=== PATIENT | female | born 1960 | race Caucasian/White ===

== ENCOUNTER 2024-01-25 10:19 | Emergency (ER) | payer BC, SELFPAY ==
[2024-01-25 10:33] VITALS: BP 166/104
--- NOTE | 2024-01-25 11:11 | ED.GENMED ---
History of Present Illness
General
Chief Complaint: Abdominal Pain
Source: patient
Exam Limitations: none
Time Seen by Provider: 01/25/24 10:50
Nursing documentation reviewed up to this point in time: agreed with
Travel History
Have you had any contact with someone who has COVID-19?: No
Do you have any symptoms of coronavirus? Fever > 100 degrees, chills, cough, shortness of breath, sore throat, loss of taste or smell, muscle aches, or headache?: No
History of Present Illness
History of Present Illness:
63-year-old female with past medical history of high blood pressure presenting to the emergency department today with concerns of lower abdominal pain worsening over the past 5 days with abdominal pressure she has been passing gas but having
difficulty with significant bowel movements has been having a small amount of loose stool. Denies vomiting has had some nausea. Has been taking Imodium with slight improvement. Denies history abdominal surgeries, she did have 1 .
Review of Systems
Review of Systems
Allergies reviewed?: Yes
All Other Systems: ROS reviewed and negative except as documented in HPI and ROS
Phy Exam
Physical Exam
Physical Exam:
GENERAL: Alert , in no apparent distress
EYE: pupils equal and reactive
NECK: Supple, no significant adenopathy.
ENT: o/p clr, mmm.
CARDIAC: Regular rate and rhythm .
LUNGS: Clear breath sounds bilaterally, no acute respiratory distress, no wheezes/rales/rhonchi
ABDOMEN: Significant tender to palpation to the lower abdomen maximal to the left lower quadrant no upper abdominal pain
NEUROLOGICAL: Alert and oriented, no focal neuro deficits
SKIN: Warm and dry, skin intact.
MUSCULOSKELETAL: No edema, well perfused.
PSYCH: Normal and appropriate interaction.
Course
Orders/Labs/Results
Orders:
Orders
01/25/24 10:58
CT Abd/pel (oral only)-[facility] Only Urgent
Comment:
Reason For Exam: iv contrast allergy abd pain llq
0.9% Sodium Chloride 1000 ml [Nss] 1,000 ml IV BOLUS
Iohexol [Omnipaque] See Protocol PO NOW STA
Ondansetron Injectable [Zofran] 4 mg IV NOW STA
01/25/24 11:59
Complete Blood Count/With Diff Urgent
Comprehensive Metabolic Panel Urgent
Lipase Urgent
Urinalysis Reflex To Culture Urgent
Date Specimen was Collected: 01/25/24
Time Specimen was Collected: 11:00
Urine Microscopic Reflex Cult Urgent
Urine Culture Urgent
CYNDY Source: U
Specimen Description:
Date Specimen was Collected: 01/25/24
Time Specimen was Collected: 11:00
Abnormal Lab Results
01/25/24
11:59
RBC 4.17 L 10^6/uL
(4.20-5.40)
MCH 32.6 H pg
(27.0-31.0)
Sodium 133 L mmol/L
(135-145)
AST 49 H U/L
(14-36)
ALT 40 H U/L
(0-35)
Urine Ketones Trace A
(Negative)
Leukocyte Esterase Rfl Trace A
(Negative)
Urine Bacteria (Reflex) Moderate A
(Negative)
01/25/24 11:59
01/25/24 11:59
Vital Signs
Initial and Last Documented VS:
Initial Vital Signs
Temp Pulse Resp BP Pulse Ox
98.2 F 103 16 166/104 98
01/25/24 10:33 01/25/24 10:33 01/25/24 10:33 01/25/24 10:33 01/25/24 10:33
Last Documented Vital Signs
Temp Pulse Resp BP Pulse Ox
98.2 F 82 16 144/99 98
01/25/24 10:33 01/25/24 13:28 01/25/24 10:33 01/25/24 13:28 01/25/24 11:16
MDM/Problems Addressed
MDM/Problems Addressed:
63-year-old female presenting to the emergency department today with concerns of lower abdominal discomfort over the past 5 days or so. They will be tolerating anything by mouth over the past few days. Has had some loose small bowel movements.
Denies specific fevers on arrival here pulse rate slightly elevated does have reproducible tenderness to the lower abdomen maximal to the left lower quadrant. Plan for CT scan for further assessment. CT scan showing incidental findings of enlarged
liver and ascites. Plan to follow-up with outpatient MRI for further assessment of this. Patient is aware. Otherwise no emergent findings stable for discharge return precautions given. Written for Jacy for symptoms she does have a remote
history of IBS
*Critical Care Note
Total Time (30-74mins, 75-104mins- exclusive of procedures): Not Applicable
ED Attending Note
-
Portions of this chart may have been created with voice recognition software.� Occasional wrong word or��sound alike� substitutions may have occurred due to the inherent limitations of voice recognition software.
Discharge Plan
Departure
Patient Disposition: Home (Routine Discharge)
Date of Disposition: 01/25/24
Time of Disposition: 15:14
Patient with high blood pressure during this ER visit?: No
Condition: Good
Covid-19: Not Applicable
Discharge Problem:
Abdominal pain, Hepatomegaly
Instructions: Abdominal Pain
Prescriptions:
New
dicyclomine 10 mg capsule
10 mg PO QID PRN (Reason: abdominal pain) Qty: 10 0RF
No Action
lisinopril-hydrochlorothiazide 20-25 mg Tablet
1 tab PO DAILY
Referrals:
Thomas Shafer MD [Family Provider] -
Activity Restrictions/Additional Instructions:
You came to the emergency department today with concerns of abdominal discomfort. You are found to have an enlarged liver and it is recommended to get an outpatient MRI. Please follow with your primary care doctor to have this ordered.
Additionally take Bentyl to help with symptoms and return to the emergency department for any worsening, new or concerning symptoms.
Interventions
Interventions:
*Risk Screen - Suicide Last Done: 01/25/24 11:16
*General Assessment Last Done: 01/25/24 11:16
*Neglect/Abuse Screening Last Done: 01/25/24 11:16
ED- Fall Risk Assessment Last Done: 01/25/24 11:16
*ED COVID-19 Vaccine History Last Done: 01/25/24 10:33
KT-Xcgrha-Znbqcaacdn Assessment Last Done: 01/25/24 11:16
[2024-01-25 11:16] VITALS: BMI 25.5
[2024-01-25] MEDS: NSS 1000 IV (11:19)
[2024-01-25] MEDS: ZOFRAN 4 MG IV (11:22)
[2024-01-25] MEDS: OMNIPAQUE 50 ML PO (11:22)
--- NOTE | 2024-01-25 11:31 | EDRN ---
the pt rang her phan that's at the bedside and this RN entered the pts room, the pt stated, 'I am uncomfortable with drinking this without speaking to the provider, i had an allergic reaction to IV contrast and i am scared to drink this', this RN
assured the pt that iodine was on the pts allergies and this RN notified Ed Wilian ROMERO and Cisco ROMERO came to the pts bedside and spoke to the pt, the pt is now drinking PO contrast, no s/s of reaction, will continue to monitor the pt closely
--- NOTE | 2024-01-25 11:54 | EDRN ---
the pt is currently still drinking PO contrast, no s/s of allergic reaction, no rash, no c/o SOB, no swelling present, will continue to monitor the pt closely
--- NOTE | 2024-01-25 12:04 | EDRN ---
this RN entered the pts room and the pt stated that she needed to use the bathroom, the pt was able to ambulate to the back to the stretcher with no issues, the pt was able to provide a urine sample, the pt is resting in stretcher in the lowest
position, side rails up x1, HOB elevated, call phan within reach, the pt is still currently drinking PO contrast with no s/s of allergic reaction, will continue to monitor the pt closely
[2024-01-25 12:13] LABS: % Basophils 0.5 % (0-2); % Eosinophils 1.1 % (0-6); % Immature Granulocytes 0.2 % (0-0.5); % Lymphocytes 25.5 % (20.5-51.1); % Monocytes 7.2 % (1.7-9.3); % Neutrophils 65.5 % (42.2-75.2); Absolute Eosinophils 0.1 10^3/uL (0-0.7); Absolute Lymphocytes 2.2 10^3/uL (1.2-3.4); Absolute Monocytes 0.6 10^3/uL (0.1-0.6); Absolute Neutrophils 5.6 10^3/uL (1.4-6.5); Hematocrit 39.2 % (37.0-47.0); Hemoglobin 13.6 g/dL (12.0-16.0); Mean Corp Hgb Conc. 34.7 g/dL (33.0-37.0); Mean Corpuscular Hgb 32.6 pg (27.0-31.0); Mean Platelet Volume 9.7 fL (7.4-10.4); Nucleated Red Blood Cells % 0 %; Platelet Count 185 10^3/uL (130-400); Red Blood Cell Count 4.17 10^6/uL (4.20-5.40); Red Cell Dist. Width 12.9 % (11.5-14.5); White Blood Cell Count 8.5 10^3/uL (4.8-10.8)
[2024-01-25 12:16] LABS: Urine Albumin Negative (Neg - Trace); Urine Bilirubin Negative (Negative); Urine Character Clear (Clear); Urine Color Yellow; Urine Glucose Negative (Negative); Urine Ketone Trace (Negative); Urine Leukocyte Trace (Negative); Urine Nitrite Negative (Negative); Urine Occult Blood Negative (Negative); Urine Specific Gravity 1.015 (<1.030); Urine Urobilinogen Negative (Neg - 1+)
[2024-01-25 12:26] LABS: Urine Mucus Moderate
[2024-01-25 12:28] LABS: Urine Bacteria Moderate (Negative); Urine Red Blood Cell 0-2 /HPF (0-2)
[2024-01-25 12:44] LABS: ALT (SGPT) 40 U/L (0-35); AST (SGOT) 49 U/L (14-36); Albumin 4.4 g/dl (3.5-5.0); Alkaline Phosphatase 63 U/L (38-126); Blood Urea Nitrogen 8 mg/dl (7-17); Calcium 9.2 mg/dl (8.4-10.2); Carbon Dioxide 25 mmol/L (22-30); Chloride 101 mmol/L (98-107); Estimated Creatinine Clearance 65 ml/min; Glucose 97 mg/dl (70-99); Lipase 240 U/L (23-300); Potassium 3.7 mmol/L (3.5-5.1); Sodium 133 mmol/L (135-145); Total Bilirubin 1.2 mg/dl (0.2-1.3); Total Protein 7.2 g/dl (6.3-8.2); eGFR > 60.00
--- NOTE | 2024-01-25 13:03 | EDRN ---
verbal report given to Tali SIMEON, the pt will be taken to results pending
[2024-01-25 13:28] VITALS: BP 144/99
[2024-01-25 15:26] VITALS: BP 143/83
[2024-01-25 15:29] VITALS: BP 143/83
== END 2024-01-25 15:30 | disposition home or self-care (01) ==
LOC: EMR 10:19
PROVIDERS: Physician Assistant; EMERGENCY PHYSICIAN Emergency Medicine; FAMILY PHYSICIAN Family Medicine
DX: R16.0 Hepatomegaly, not elsewhere classified (principal); R10.32 Left lower quadrant pain; R11.0 Nausea; I10 Essential (primary) hypertension; Z88.8 Allergy status to other drugs, medicaments and biological substances; Z88.6 Allergy status to analgesic agent; Z91.040 Latex allergy status
CPT/HCPCS: 99284; 96374; 96361; 74176; 80053; 81003; 81015; 83690; 85025; 87086

== ENCOUNTER 2025-10-01 21:18 | Inpatient (IN) | payer BC, SELFPAY ==
[2025-10-01 13:07] VITALS: BP 176/100
[2025-10-01 13:32] LABS: Hematocrit 45.6 % (37.0-47.0); Hemoglobin 15.2 g/dL (12.0-16.0); Mean Corp Hgb Conc. 33.3 g/dL (33.0-37.0); Mean Corpuscular Volume 96.6 fL (81.0-99.0); Nucleated Red Blood Cells % 0 %; Platelet Count 158 10^3/uL (130-400); Red Cell Dist. Width 12.2 % (11.5-14.5)
[2025-10-01 13:56] LABS: ALT (SGPT) 68 U/L (0-35); AST (SGOT) 146 U/L (14-36); Albumin 4.7 g/dl (3.5-5.0); Alkaline Phosphatase 167 U/L (38-126); Blood Urea Nitrogen 8 mg/dl (7-17); Calcium 9.4 mg/dl (8.4-10.2); Carbon Dioxide 21 mmol/L (22-30); Chloride 90 mmol/L (98-107); Glucose 68 mg/dl (70-99); Lipase 185 U/L (23-300); Potassium 4.3 mmol/L (3.5-5.1); Sodium 127 mmol/L (135-145); Total Protein 8.5 g/dl (6.3-8.2); eGFR > 60.00
--- NOTE | 2025-10-01 15:51 | ED.GENMED ---
History of Present Illness
<Donna Jones NP - Last Filed: 10/01/25 20:18>
General
Chief Complaint: Abdominal Symptoms
Source: patient
Exam Limitations: none
Time Seen by Provider: 10/01/25 15:11
Nursing documentation reviewed up to this point in time: agreed with
History of Present Illness
History of Present Illness:
Patient to emergency department with complaint of nausea vomiting diarrhea abdominal pain. States she developed URI -sore throat, nasal congestion, green nasal discharge - Symptoms last weekend. She was seen at urgent care on Thursday and placed
on Augmentin 875 mg twice daily. She said after the first dose she developed severe nausea. By Thursday she noted nausea vomiting and diarrhea. She has taken a total of 5 Augmentin tablets out of 14. States each time she takes a dose her
symptoms worsen. States she is still not feeling like herself. Brought self to the emergency department for evaluation. She denies fever/chills, skin rash.
Past History
<Donna Jones NP - Last Filed: 10/01/25 20:18>
Past History
ED Past Medical History: HTN and Other (Fatty liver)
Social History
Alcohol: Occasional (She reports drinking wine 'a few times during the week ')
Review of Systems
<Donna Jones NP - Last Filed: 10/01/25 20:18>
Review of Systems
Constitutional: Reports fatigue
EENT: Reports runny nose (Green nasal discharge)
Respiratory: Reports no symptoms
Cardiac: Reports no symptoms
ABD/GI: Reports abdominal pain (Upper abdominal pain), nausea, vomiting and diarrhea
: Reports no symptoms
Musculoskeletal: Reports no symptoms
Skin: Reports no symptoms
Neurological: Reports weakness
Psychiatric: Reports no symptoms
Phy Exam
<Donna Jones NP - Last Filed: 10/01/25 20:18>
General Physical Exam
General Presentation: mild distress
General age: appears stated age
General Skin: warm and dry
General Habitus: normal
General Mental: alert
Cardiovascular Exam
Cardiovascular Exam: regular rate/rhythm and no edema
Pulmonary Exam
Pulmonary Exam: lungs clear and no respiratory distress
Gastrointestinal Exam
Gastrointestinal Exam: normal bowel sounds, soft, no organomegaly, no pulsatile mass and non distended
Palpation: left upper quadrant: Moderate tenderness, left lower quadrant: Mild tenderness, right upper quadrant: Moderate tenderness, right lower quadrant: Mild tenderness and generalized: Mild tenderness
Musculoskeletal Exam
Musculoskeletal Exam: full ROM and neuro vasc intact
Skin Exam
Skin Exam: normal color, warm/dry and no rash
Psychiatric Exam
Psychiatric Exam: normal mood/affect
Course
<Donna Jones DEVELOPER ADVISOR - Last Filed: 10/01/25 20:18>
Orders/Labs/Results
Orders:
Orders
10/01/25 13:26
CBC/With Diff [Complete Blood Count/With Diff] Urgent
CMP [Comprehensive Metabolic Panel] Urgent
Lipase Urgent
Monotest Urgent
Comment: ADD ON
10/01/25 15:39
Add On- LAB Urgent
Tests Added?: mono
US Abdomen Complete/Upper Urgent
Comment:
Reason For Exam: upper abd. pain, elevated LFT's
10/01/25 15:40
0.9% Sodium Chloride 1000 ml [Nss] 1,000 ml IV BOLUS
Ondansetron Injectable [Zofran] 4 mg IV NOW STA
10/01/25 18:22
CT Abd/pel Without Iv Or Oral Urgent
Comment:
Reason For Exam: upper abd pain
10/01/25 18:48
Urinalysis Reflex To Culture Urgent
Date Specimen was Collected: 10/01/25
Time Specimen was Collected: 15:45
10/01/25 20:10
Piperacillin/Tazo 3.375 Gram [Zosyn] 3.375 gram in 50 ml IV NOW
10/01/25 20:15
0.9% Sodium Chloride 1000 ml [Nss] 1,000 ml IV 125 mls/hr
Abnormal Lab Results
10/01/25 10/01/25
13: 18:48
MCH 32.2 H pg
(27.0-31.0)
Absolute Neuts (auto) 6.6 H 10^3/uL
(1.4-6.5)
Neutrophils % 79.9 H %
(42.2-75.2)
Lymphocytes % 15.4 L %
(20.5-51.1)
Sodium 127 L mmol/L
(135-145)
Chloride 90 L mmol/L
(98-107)
Carbon Dioxide 21 L mmol/L
(22-30)
Creatinine 0.5 L mg/dL
(0.6-1.0)
Glucose 68 L mg/dl
(70-99)
Total Bilirubin 2.1 H mg/dl
(0.2-1.3)
AST 146 H U/L
(14-36)
ALT 68 H U/L
(0-35)
Alkaline Phosphatase 167 H U/L
(38-126)
Total Protein 8.5 H g/dl
(6.3-8.2)
Urine Ketones 3+ A
(Negative)
10/01/25 13:26
10/01/25 13:26
Vital Signs
Initial and Last Documented VS:
Initial Vital Signs
Temp Pulse Resp BP Pulse Ox
98.7 F 85 15 176/100 97
10/01/25 13:07 10/01/25 13:07 10/01/25 13:07 10/01/25 13:07 10/01/25 13:07
Last Documented Vital Signs
Temp Pulse Resp BP Pulse Ox
98.7 F 77 18 157/85 96
10/01/25 13:07 10/01/25 19:06 10/01/25 19:06 10/01/25 19:06 10/01/25 19:06
<Javier Burks, DO - Last Filed: 10/01/25 19:59>
Orders/Labs/Results
Orders:
Orders
10/01/25 13:26
CBC/With Diff [Complete Blood Count/With Diff] Urgent
CMP [Comprehensive Metabolic Panel] Urgent
Lipase Urgent
Monotest Urgent
Comment: ADD ON
10/01/25 15:39
Add On- LAB Urgent
Tests Added?: mono
US Abdomen Complete/Upper Urgent
Comment:
Reason For Exam: upper abd. pain, elevated LFT's
10/01/25 15:40
0.9% Sodium Chloride 1000 ml [Nss] 1,000 ml IV BOLUS
Ondansetron Injectable [Zofran] 4 mg IV NOW STA
10/01/25 18:22
CT Abd/pel Without Iv Or Oral Urgent
Comment:
Reason For Exam: upper abd pain
10/01/25 18:48
Urinalysis Reflex To Culture Urgent
Date Specimen was Collected: 10/01/25
Time Specimen was Collected: 15:45
10/01/25 20:10
Piperacillin/Tazo 3.375 Gram [Zosyn] 3.375 gram in 50 ml IV NOW
10/01/25 20:15
0.9% Sodium Chloride 1000 ml [Nss] 1,000 ml IV 125 mls/hr
Abnormal Lab Results
10/01/25 10/01/25
13:26 18:48
MCH 32.2 H pg
(27.0-31.0)
Absolute Neuts (auto) 6.6 H 10^3/uL
(1.4-6.5)
Neutrophils % 79.9 H %
(42.2-75.2)
Lymphocytes % 15.4 L %
(20.5-51.1)
Sodium 127 L mmol/L
(135-145)
Chloride 90 L mmol/L
(98-107)
Carbon Dioxide 21 L mmol/L
(22-30)
Creatinine 0.5 L mg/dL
(0.6-1.0)
Glucose 68 L mg/dl
(70-99)
Total Bilirubin 2.1 H mg/dl
(0.2-1.3)
AST 146 H U/L
(14-36)
ALT 68 H U/L
(0-35)
Alkaline Phosphatase 167 H U/L
(38-126)
Total Protein 8.5 H g/dl
(6.3-8.2)
Urine Ketones 3+ A
(Negative)
10/01/25 13:26
10/01/25 13:26
Vital Signs
Initial and Last Documented VS:
Initial Vital Signs
Temp Pulse Resp BP Pulse Ox
98.7 F 85 15 176/100 97
10/01/25 13:07 10/01/25 13:07 10/01/25 13:07 10/01/25 13:07 10/01/25 13:07
Last Documented Vital Signs
Temp Pulse Resp BP Pulse Ox
98.7 F 77 18 157/85 96
10/01/25 13:07 10/01/25 19:06 10/01/25 19:06 10/01/25 19:06 10/01/25 19:06
<Donna Jones, DEVELOPER ADVISOR - Last Filed: 10/01/25 20:18>
*Radiology
Radiology exam reviewed: radiology read reviewed
*Pulse Oximetry
SaO2: 97
Oxygen Mode of Delivery: Room air
Patient hypoxic: no
*Critical Care Note
Total Time (30-74mins, 75-104mins- exclusive of procedures): Not Applicable
<Donna Jones NP - Last Filed: 10/01/25 20:18>
Update Note
Update Note:
Patient to the emergency department with complaint of upper abdominal pain nausea vomiting and diarrhea. She was placed on Augmentin on Thursday for suspected sinus infection. Symptoms started the following day. She denies fever or chills. She
brought self to the emergency department for further evaluation. Vital signs are stable and she remains afebrile. Nausea improved iwth zofran. No vomiting or diarrhea whle in ED. WBC 8.3. NA 127, T. bili 2.1, AST 146, ALT 68, alk phos 167.
Ultrasound completed. Prominent size gallbladder without gallbladder wall thickening or stones, questional pericholecystic fluid. Mildly enlarged common bile duct at 1.[address] confirming ultrasound findings. Discussed findings with Dr. Herzog.
Will admit to the hospitalist, MRI/MRCP W/WO contrast in AM.
ED Attending Note
<Donna Jones NP - Last Filed: 10/01/25 20:18>
-
Portions of this chart may have been created with voice recognition software.� Occasional wrong word or��sound alike� substitutions may have occurred due to the inherent limitations of voice recognition software.
<Javier Burks, - Last Filed: 10/01/25 19:59>
ED Attending Note
Patient seen and examined by attending physician: Yes
ED Attending Note:
I have reviewed and agree with history treatment plan by Donna Jones NP. My exam revealed 65-year-old female no acute distress, right upper quadrant tenderness. CT abdomen pelvis and ultrasound show dilated common bile duct. Bilirubin
elevated. Admit for possible choledocholithiasis. Mild gallbladder wall thickening. Will treat with Zosyn as well.
Discharge Plan
Departure
Patient Disposition: Admit
Date of Disposition: 10/01/25
Time of Disposition: 20:12
Presentation/result/management discussed w/ accepting MD/DO: Hospitalist
Patient with high blood pressure during this ER visit?: No
Condition: Fair
Covid-19: Not Applicable
Discharge Problem:
Choledocholithiasis, Acute hyponatremia
Prescriptions:
No Action
lisinopril-hydrochlorothiazide 20-25 mg Tablet
1 tab PO DAILY
dicyclomine 10 mg capsule
10 mg PO QID PRN (Reason: abdominal pain) Qty: 10 0RF
Referrals:
Joanna Bello PA-C [Family Provider]
Interventions
Interventions:
*Risk Screen - Suicide Last Done: 10/01/25 13:07
*General Assessment Last Done: 10/01/25 13:07
*Neglect/Abuse Screening Last Done: 10/01/25 13:07
*ED- Fall Risk Assessment Last Done: 10/01/25 16:30
*ED COVID-19 Vaccine History Last Done: 10/01/25 13:07
*ED Influenza Vaccine History Last Done: 10/01/25 13:07
CO-Smclnl-Dmhegnimzf Assessment Last Done: 10/01/25 16:30
Discharge Date and Time
Print Language: SCOTTISH
[2025-10-01 16:31] VITALS: BMI 23.4
[2025-10-01] MEDS: NSS 1000 IV ×2 (16:42→20:15)
[2025-10-01] MEDS: ZOFRAN 4 MG IV (16:42)
[2025-10-01 16:44] VITALS: BP 165/77
[2025-10-01 18:54] LABS: Urine Character Clear (Clear)
[2025-10-01 19:06] VITALS: BP 157/85
[2025-10-01] MEDS: ZOSYN 50 IV (20:18)
--- NOTE | 2025-10-01 20:59 | HPS.HSE ---
Family Physician
-
Family Physician: Joanna Bello PA-C
Chief Complaint
-
N/V/D
History of Present Illness
Patient is a 65y F with PMH significant for Dupuytren's who presents to ED complaining of N/V/D. Patient states that her symptoms started on Thursday with sore throat and sinus congestion. She was seen at Urgent Care and prescribed Augmentin.
She took her first dose that evening and developed nausea and vomiting. She has had loose / liquid, non-bloody stools. Patient has been taking the Augmentin about once daily since that time - but continues to have N/V/D. Her PO intake has been
poor due to her symptoms. She has felt 'hot and cold' but no recorded fevers. Some crampy abdominal discomfort prior to BM - but no oher abdominal pain.
Patient denies any known sick contacts or recent travel, new food exposures, etc.
Patient presented to the ED for further evaluation and treatment.
Medical History
Past Medical History
Past Medical History: Reports Other
Additional Past Medical History:
Dupuytren's
Peripheral Neuropathy
Hypertension
Past Surgical History: Reports Other
Additional Past Surgical History:
Hand Surgeries x 10
Social History
Tobacco: Former Smoker (Quit smoking 30 years ago.)
Alcohol: Occasional
Drug: None
Family History
Family History: Not pertinent
Allergies / Home Medications
Allergies reflects when Allergies were last updated in [facility]
Home Medications with original date entered in [facility]
Allergy/Medication List:
Allergies
Allergy/AdvReac Type Severity Reaction Status Date / Time
iodine Allergy Rash Verified 01/25/24 11:11
latex Allergy Unknown Verified 01/25/24 10:42
NSAIDS (Non-Steroidal Allergy Unknown Verified 01/25/24 10:42
Anti-Inflamma
Home Medications
lisinopril 20 mg-hydrochlorothiazide 25 mg tablet 1 tab PO DAILY 01/25/24
fluticasone propionate 50 mcg/actuation nasal spray,suspension 1 spray intranasal BID 10/01/25
Review of Systems
-
History Source: Patient
A 12 point ROS was completed and negative except as noted: Yes
Constitutional: Reports Fatigue; Denies Fever
EENT: Reports Sore Throat; Denies Runny Nose
Respiratory: Denies Cough or Trouble Breathing
Cardiac: Denies Chest Pain or Palpitations
Abdomen/GI: Reports Nausea, Vomiting, Diarrhea and Anorexia; Denies Abdominal Pain, Bloody Stools or Black Stools
: Denies Dysuria or Frequency
Musculoskeletal: Denies Joint Pain or Edema
Neurological: Denies Dizzy or Headache
Psych: Denies Depression or Anxiety
Physical Exam
Vital Signs
Vital Signs
Temp Pulse Resp BP Pulse Ox
98.7 F 77 18 157/85 96
10/01/25 13:07 10/01/25 19:06 10/01/25 19:06 10/01/25 19:06 10/01/25 19:06
Physical Exam
General: Other (65y F in no acute distress.)
HEENT: Other (Dry MM. Neck supple.)
Respiratory: Clear; No Wheezes, Rales or Rhonchi
Cardiac: S1/S2 and Regular Rhythm; No Murmur
GI: Soft, Non Distended, Normal Bowel Sounds and Other (Pos RUQ tenderness without rebound / guarding.)
Musculoskeletal: No Clubbing, No Cyanosis and No Edema
Neuro: AO x 3
Laboratory Results
-
10/01/25 13:26
10/01/25 13:26
Laboratory Results
Total Bilirubin 2.1 mg/dl (0.2-1.3) H 10/01/25 13:26
AST 146 U/L (14-36) H 10/01/25 13:26
ALT 68 U/L (0-35) H 10/01/25 13:26
Alkaline Phosphatase 167 U/L (38-126) H 10/01/25 13:26
Lipase 185 U/L (23-300) 10/01/25 13:26
Impression/Plan
-
A/P: Patient is a 65y F with PMH significant for Dupuytren's who presents to ED complaining of N/V/D x 5 days.
Enteritis / Duodenitis
Dilated CBD
Abnormal LFTs
Anion Gap Metabolic Acidosis
- Admit for further evaluation and treatment.
- Patient with N/V/D since beginning Augmentin on Thursday.
- Some RUQ tenderness on exam. Afebrile. Not-toxic appearing.
- ? viral enteritis versus med effect v other.
- CT and US done in the ED showing dilated CBD (1.2cm) and dilated GB without significant wall thickening or pericholecystic fluid.
- Hold further Augmentin.
- Cover with ceftriaxone / metronidazole for now.
- Supportive care with IVFs, antiemetics, etc.
- GI evaluation for additional recommendations.
- Check MRCP in AM.
- Follow LFTs for changes.
- Check lactate now. Follow for changes in anion gap / lytes.
- Stool studies if further diarrhea.
- Monitor for any new / worsening symptoms.
Benign Hypertension
- Stable. Continue lisinopril. Hold HCTZ acutely.
DVT Prophylaxis: SCDs
Code Status: Full
--- NOTE | 2025-10-01 21:45 | PTCARENOTE ---
Pt arrived to unit via stretcher and stand-by assist to bed. Admission questions and initial assessment completed. IV fluids started. Pt oriented to room and call phan within reach.
[2025-10-01 22:05] VITALS: BP 205/105
[2025-10-01] MEDS: FLAGYL 500 MG 100 IV (22:12)
[2025-10-01] MEDS: D5/0.9% SODIUM CHLORIDE 1000 IV (22:16)
[2025-10-01 22:51] VITALS: BP 161/101
[2025-10-02] MEDS: ANESTHETIC LOZENGE 1 LOZENGE PO (00:27)
[2025-10-02 01:07] LABS: COVID-19 Antigen Negative (Negative)
[2025-10-02] MEDS: STERILE WATER FOR INJECTION 10 ML IV (01:31)
[2025-10-02] MEDS: ROCEPHIN 1000 MG IV (01:31)
[2025-10-02 02:14] VITALS: BMI 23.1
[2025-10-02 02:46] VITALS: BP 156/68
[2025-10-02] MEDS: D5/0.9% SODIUM CHLORIDE 1000 IV ×2 (06:20→14:06)
[2025-10-02 07:00] VITALS: BP 136/81
--- NOTE | 2025-10-02 08:32 | W.PN.HOSP.TC ---
Today's Communication/Plan
-
IV fluids. IV antibiotics. MRCP
Assessment / Plan
Assessment / Plan
Physical exam:
General: Acutely ill. Nontoxic appearance
HEENT: Normocephalic, Atraumatic and Moist Mucous Membranes
Respiratory: Clear to Auscultation; Negative Wheezes, Rales or Rhonchi
Cardiac: Regular Rhythm and S1/S2
GI: Soft, Nontender and Nondistended
Musculoskeletal: No Clubbing, No Cyanosis and No Edema
Neuro: Awake, Alert and Oriented, no neurological deficits
Psych: Calm
A/P:
Persistent nausea and vomiting associated with diarrhea:
Patient attributed to the use of Augmentin recently. Could be also gastroenteritis.
CT scan with evidence of duodenitis
Continue IV fluids
IV Protonix
Empiric IV antibiotics of ceftriaxone and Flagyl but holding Augmentin.
Pain control
GI consult appreciated
Elevated LFTs and CBD:
Plan for MRCP
Patient has history of fatty liver disease MASLD
Hypertension:
Continue antihypertensives
Hyponatremia:
Mild
DVT prophylaxis:
SCDs
CODE STATUS:
Full code
Total time spent on today's encounter was 52 minutes which included time spent in counseling the patient/family regarding diagnosis and treatment plan as listed above, goals of care, and symptom management. Case was discussed with nursing staff,
specialists, and care coordinators/case management. All labs and imaging personally reviewed by me. Remainder the time spent in detailed review of previous records, lab data, imaging, and other medical provider documentation.
Anticipated Discharge: Within 24 hours
Subjective/Interval History
-
Date of Service: October 02, 2025
Patient feels better overall. Less nausea and no vomiting today. Afebrile.
Objective Data
-
Labs:
Laboratory Results
10/02/25
08:02
WBC Pending
Hgb Pending
Hct Pending
Plt Count Pending
Sodium Pending
Potassium Pending
Chloride Pending
Carbon Dioxide Pending
BUN Pending
Creatinine Pending
Glucose Pending
Calcium Pending
Total Bilirubin Pending
AST Pending
ALT Pending
Alkaline Phosphatase Pending
Vital Signs:
Vital Signs
Temp Pulse Resp BP Pulse Ox
98.6 F 74 18 156/68 100
10/01/25 22:05 10/01/25 22:05 10/01/25 22:05 10/02/25 02:46 10/01/25 22:05
I&O
10/01/25 10/02/25 10/03/25
06:59 06:59 06:59
Intake Total 1225 / 1225
Balance 1225 / 1225
[2025-10-02] MEDS: ZESTRIL 20 MG PO (09:04)
[2025-10-02] MEDS: PROTONIX IV 40 MG IV (09:04)
[2025-10-02 09:18] LABS: Hematocrit 38.6 % (37.0-47.0); Hemoglobin 13.0 g/dL (12.0-16.0); Mean Corp Hgb Conc. 33.7 g/dL (33.0-37.0); Mean Corpuscular Volume 96.0 fL (81.0-99.0); Red Cell Dist. Width 12.3 % (11.5-14.5)
--- NOTE | 2025-10-02 09:33 | CON.GI ---
Consultation
-
Date/Time Consultation Requested: 10/01/25 21:37
Date/Time Consultation Performed: 10/02/25, 09:34
Requesting Provider: Dr. Tra Guo
Performing Provider: Dr. Femi Herzog
Reason for Consultation: Elevated LFTs, dilated CBD
Medical History
Chief Complaint / HPI
Chief Complaint: N/V, diarrhea
History of Present Illness:
Ms. Sidhu is a 65 y.o female with past medical history of HTN, Dupuytren's contracture, fatty liver, and peripheral neuropathy who presented to the ED with nausea/vomiting and diarrhea. Found to have elevated LFTs and biliary ductal dilatation on
imaging for which GI has been consulted for further evaluation and management.
Patient states she was in her usual state of health until last week on Thursday where she developed URI symptoms with a sore throat and sinus congestion. She notes her grandchildren are also sick with sinusitis and pinkeye. She was seen at an
urgent care and prescribed Augmentin for her suspected sinusitis. When she took her first dose of antibiotics she developed nausea and vomiting as well as intermittent looser stools. She has been taking Augmentin once daily since that time with
improvement in her URI symptoms but continuing to have nausea/vomiting as well as nonbloody, watery stools. She has had poor p.o. intake due to her symptoms but denies any abdominal pain or right sided discomfort. Denies any other travel history
or spoiled food exposure/contamination. No other fevers, chills or other constitutional symptoms. She is not on any antiplatelets or anticoagulants. Given her persistent nausea and vomiting she came to the ED for further evaluation.
In the ED, patient was afebrile and HD-stable. Labs notable for Na 127. K 4.3, and LFTs with AST 146, ALT 68, ALP 167, T Bili 2.1, and lipase 185. CBC without leukocytosis with WBC 8.3, Hgb 15.2, and plts 158. Abdominal US revealed prominent size of
the gallbladder without findings to suggest cholecystitis and mildly enlarged CBD up to 1.2 cm without intrahepatic biliary ductal dilatation. CT Abd/pelvis w/ot IV contrast revealed mild hepatomegaly and prominent gallbladder with CBD measuring 1.2
cm without definitive choledocholithiasis along with mild stranding in the duodenum concerning for possible duodenitis. She
Past Medical History
Past Medical History: Other (Dupuytren's Peripheral Neuropathy Hypertension)
Past Surgical History: Other (Hand Surgeries x 10 )
Social History
Tobacco: Former Smoker
Alcohol: Occasional
Drug: None
Family History
Family History: Reviewed & Not Pertinent
Allergies / Home Medications
Allergy/AdvReac Type Severity Reaction Status Date / Time
iodine Allergy Rash Verified 01/25/24 11:11
latex Allergy Unknown Verified 01/25/24 10:42
NSAIDS (Non-Steroidal Allergy Unknown Verified 01/25/24 10:42
Anti-Inflamma
�Medication �Instructions �Recorded
lisinopril 20 1 tab PO DAILY 01/25/24
mg-hydrochlorothiazide 25 mg tablet
fluticasone propionate 50 1 spray intranasal BID 10/01/25
mcg/actuation nasal
spray,suspension
Review of Systems
-
All other systems: A 12 pt ROS was Negative except as stated above in HPI
Vital Signs
Temp Pulse Resp BP Pulse Ox
98.1 F 66 20 136/81 95
10/02/25 07:00 10/02/25 09:04 10/02/25 07:00 10/02/25 09:04 10/02/25 07:00
Physical Exam
Exam
General: Well Developed, No Apparent Distress and Comfortable
HEENT: Anicteric and Moist Mucous Membranes
Respiratory: Other (Normal WOB on room air)
GI: Soft, Non Tender and Non Distended
Skin: Warm
Neuro: Nonfocal/Grossly Intact
Psych: Calm
Results
WBC 5.3 10^3/uL (4.8-10.8) 10/02/25 08:02
Hgb 13.0 g/dL (12.0-16.0) 10/02/25 08:02
Hct 38.6 % (37.0-47.0) 10/02/25 08:02
MCV 96.0 fL (81.0-99.0) 10/02/25 08:02
Plt Count 158 10^3/uL (130-400) 10/01/25 13:26
Absolute Neuts (auto) 6.6 10^3/uL (1.4-6.5) H 10/01/25 13:26
Sodium 127 mmol/L (135-145) L 10/01/25 13:26
Potassium 4.3 mmol/L (3.5-5.1) 10/01/25 13:26
Chloride 90 mmol/L (98-107) L 10/01/25 13:26
Carbon Dioxide 21 mmol/L (22-30) L 10/01/25 13:26
BUN 8 mg/dl (7-17) 10/01/25 13:26
Creatinine 0.5 mg/dL (0.6-1.0) L 10/01/25 13:26
Calcium 9.4 mg/dl (8.4-10.2) 10/01/25 13:26
Total Bilirubin 2.1 mg/dl (0.2-1.3) H 10/01/25 13:26
AST 146 U/L (14-36) H 10/01/25 13:26
ALT 68 U/L (0-35) H 10/01/25 13:26
Alkaline Phosphatase 167 U/L (38-126) H 10/01/25 13:26
Lipase 185 U/L (23-300) 10/01/25 13:26
Hepatitis C Antibody Cancelled 10/01/25 21:54
Diagnostic Image Results: As detailed above
Assessment / Plan
-
Ms. Sidhu is a 65 y.o female with past medical history of HTN, Dupuytren's contracture, fatty liver, and peripheral neuropathy who presented to the ED with nausea/vomiting and non-bloody, watery diarrhea. Found to have elevated LFTs and biliary
ductal dilatation on imaging for which GI has been consulted for further evaluation and management.
#Elevated LFTs
#Biliary Ductal Dilatation
Patient presenting with nausea, vomiting as well as nonbloody, watery diarrhea since taking her Augmentin for her sinusitis. She was found to have elevated LFTs and found to have biliary ductal dilatation with her CBD measuring up to 1.2 cm without
any obvious choledocholithiasis or other intraluminal biliary defects on her prior US or CT imaging. Patient did admit mild right upper quadrant tenderness but is without any abdominal pain and reassuring exam with resolution of her previous
abdominal discomfort. Unclear if she may have passed a stone and/or sludge given her dilated ducts on imaging previous elevated LFTs. Doubt this is related to DILI secondary to her Augmentin which has now been held. Regardless, given her elevated
LFTs and biliary ductal dilatation patient would benefit from an MRI/MRCP for further evaluation to definitively exclude choledocholithiasis. Otherwise, she is without any other symptoms or signs suggest sepsis and/or cholangitis.
Recommendations:
- Keep NPO pending MRI/MRCP
- Trend LFTs with T. bili daily, obtain viral hepatitis serologies
- Agree with empiric IV antibiotics for now
- Await MRI/MRCP to p.o. contrast for further evaluation of biliary tree given concern for potential choledocho
- Further recommendations to be forthcoming once her MRI/MRCP have been obtained
- Continue pain control and IV antiemetics as needed
- Rest of supportive care as per primary team
#Nausea/Vomiting
#Watery Diarrhea- Resolved
#C/f Duodenitis
Patient with previous nausea/vomiting and watery stools prompting her to come to the ED. Denies any further looser stools or diarrhea overnight or this morning. Unclear if this was related to Augmentin induced GI side effects / abx-associated
diarrhea versus potential underlying duodenitis/infectious enteritis. Seems less likely infectious given her symptoms and potentially antibiotic related. Denies any further loose stools since holding her Augmentin and would defer stool testing at
this time. Favor continued ongoing supportive care and checking stool studies if her looser stools were to recur.
#Fatty Liver #MASLD
Evidence of previous hepatic fatty infiltration on prior imaging with likely heterogeneous pattern of diffuse fatty liver disease seen on recent Abdominal US. Of note, previous CT imaging 01/2024 was concerning for potential early hepatic changes of
cirrhosis. She has no lab evidence to suggest synthetic dysfunction and would benefit from eventual outpatient follow-up for consideration of ultrasound elastography versus MR elastography. Would defer calculating fib 4 as would be confounded in
the setting of her elevated transaminases. Would obtain viral hepatitis serologies for completion.
Discussed with primary internal medicine team. GI will continue to follow.
Data Reviewed
-
Radiology: Image Personally Visualized and interpreted and Report Reviewed by me
CT Scan: Image Personally Visualized and interpreted and Report Reviewed by me
Ultrasound: Image Personally Visualized and interpreted and Report Reviewed by me
-
-
Thank you for consultation and allowing me to participate in the patient's care. Please call the alterations expert GI physician during the after hours with any questions or concerns.
[2025-10-02 10:10] LABS: ALT (SGPT) 54 U/L (0-35); AST (SGOT) 101 U/L (14-36); Albumin 3.7 g/dl (3.5-5.0); Alkaline Phosphatase 120 U/L (38-126); Blood Urea Nitrogen 8 mg/dl (7-17); Calcium 8.8 mg/dl (8.4-10.2); Carbon Dioxide 31 mmol/L (22-30); Chloride 98 mmol/L (98-107); Estimated Creatinine Clearance 74 ml/min; Glucose 115 mg/dl (70-99); Magnesium 1.7 mg/dl (1.6-2.3); Potassium 3.5 mmol/L (3.5-5.1); Sodium 134 mmol/L (135-145); Total Protein 6.6 g/dl (6.3-8.2); eGFR > 60.00
[2025-10-02] MEDS: FLAGYL 500 MG 100 IV ×2 (10:23→21:13)
[2025-10-02 11:27] LABS: Platelet Count 120 10^3/uL (130-400)
--- NOTE | 2025-10-02 12:10 | CM ---
CM following re: discharge planning.
Reviewed pt's chart, met with pt.
Pt is a 65 year old female, admitted with primary dx of Enteritis / Duodenitis, N/V/D x 5 days.
Pt reports she lives with SO in a 2SH, 2 steps to enter, has 2 supportive children. Pt described herself as independent in all areas [employer]. No DME, VN or SNF history.
PCP: [facility].
Pharmacy: [facility].
D/C plan: home with anticipated no needs.
CM will follow with discharge plan updates as hospitalization progresses
[2025-10-02 15:00] VITALS: BP 136/81
[2025-10-02 18:38] LABS: Hepatitis B Surface Antigen Negative (Negative)
[2025-10-02 18:57] LABS: Hepatitis A Antibody, Total Negative (Negative); Hepatitis C Antibody Negative (Negative)
[2025-10-02 23:13] VITALS: BP 135/78
[2025-10-03] MEDS: STERILE WATER FOR INJECTION 10 ML IV (01:12)
[2025-10-03] MEDS: ROCEPHIN 1000 MG IV (01:12)
[2025-10-03] MEDS: D5/0.9% SODIUM CHLORIDE 1000 IV (01:12)
--- NOTE | 2025-10-03 05:35 | W.PN.GI.CBS2 ---
Today's Communication / Plan
-
Suspect patient likely passed small stone and/or sludge given presentation, previous T Bili and ductal dilatation. New findings of cirrhosis on MRI and suspect 2/2 alcohol and discussed EtOH cessation this AM. Would benefit from both GI and surgery
follow-up as outpatient. See rest of care as outlined below. GI will sign-off, please re-contact with any questions or concerns.
Assessment / Plan
-
Ms. Sidhu is a 65 y.o female with past medical history of HTN, Dupuytren's contracture, fatty liver, and peripheral neuropathy who presented to the ED with nausea/vomiting and non-bloody, watery diarrhea. Found to have elevated LFTs and biliary
ductal dilatation on imaging for which GI has been consulted for further evaluation and management.
#Elevated LFTs
#Biliary Ductal Dilatation
Patient presenting with nausea, vomiting as well as nonbloody, watery diarrhea since taking her Augmentin for her sinusitis. She was found to have elevated LFTs and found to have biliary ductal dilatation with her CBD measuring up to 1.2 cm without
any obvious choledocholithiasis or other intraluminal biliary defects on her prior US or CT imaging. Patient did admit mild right upper quadrant tenderness but is without any abdominal pain and reassuring exam with resolution of her previous
abdominal discomfort. Unclear if she may have passed a stone and/or sludge given her dilated ducts on imaging previous elevated LFTs. Doubt this is related to DILI secondary to her Augmentin which has now been held. Regardless, given her elevated
LFTs and biliary ductal dilatation patient would benefit from an MRI/MRCP for further evaluation to definitively exclude choledocholithiasis. Otherwise, she is without any other symptoms or signs suggest sepsis and/or cholangitis.
MRI/MRCP 10/02/25- Impression: MR findings compatible with a cirrhotic liver, there is also hepatomegaly with mild to moderate heterogeneous fatty infiltration of the liver. Hemangioma within the R hepatic lobe and 3 hepatic cysts (less than 5 mm).
No evidence of HCC. Gallbladder is distended without acute cholecystitis. Dilation of the common bile duct and the common hepatic duct. No evidence for bile duct calculus or obstructing mass. Minimal free fluid in the right and left upper quadrants
adjacent liver and spleen.There is no MR evidence to suggest significant wall thickening of the visualized small or large bowel loops. No significant distention of visualized small or large bowel loops.
Recommendations:
- Tolerating LFD without difficulty
- Given symptoms suspicious for biliary colic, biliary ductal dilatation and down-trending T Bili suspect she may have passed stone/sludge
- As patient is improved and without further symptoms, recommend discussion of potential lap anna as outpatient with general surgery
- Given her hx of compensated cirrhosis: Predicted Postoperative Outcomes by the VOCAL-Bhavin Score (for lap anna):
30-day mortality: 0.4%
90-day mortality: 1.1%
180-day mortality: 1.9%
90-day decompensation: 10.8%
- Continue pain control and IV antiemetics as needed
- Rest of supportive care as per primary team
#Nausea/Vomiting- Resolved
#Watery Diarrhea- Resolved
#C/f Duodenitis
Patient with previous nausea/vomiting and watery stools prompting her to come to the ED. Denies any further looser stools or diarrhea overnight or this morning. Unclear if this was related to Augmentin induced GI side effects / abx-associated
diarrhea versus potential underlying duodenitis/infectious enteritis. Seems less likely infectious given her symptoms and potentially antibiotic related. Denies any further loose stools since holding her Augmentin and would defer stool testing at
this time. Favor continued ongoing supportive care and checking stool studies if her looser stools were to recur.
- No evidence of any enteritis or other bowel wall thickening on recent MRI Abdomen, suspect secondary to GI-sided effects of Augmentin given resolution of symptoms since holding abx
#Compensated Cirrhosis suspect 2/
#EtOH Cirrhosis
Evidence of previous hepatic fatty infiltration on prior imaging with likely heterogeneous pattern of diffuse fatty liver disease seen on recent Abdominal US. Of note, previous CT imaging 01/2024 was concerning for potential early hepatic changes of
cirrhosis. Now with recent MRI findings compatible with a cirrhotic appearing liver along with hepatomegaly. She is without any decompensations from a liver standpoint. Family history significant for cirrhosis secondary to alcohol in her mother.
She also notes significant alcohol use and drinks approximately 2 bottles of wine per week. On repeat labs she does have evidence of mild synthetic dysfunction with mildly elevated INR, thrombocytopenia, as well as mild hypoalbuminemia. She would
benefit from outpatient follow-up with GI to pursue a full serologic workup as well and would benefit from ongoing HCC screening. Discussed importance of strict alcohol cessation as outpatient.
- Encouraged outpatient f/u with GI along with importance of EtOH cessation
Discussed with primary internal medicine team this AM. GI will sign-of, please re-contact with any questions or concerns.
Subjective
Subjective
Date of Service: October 03, 2025
- MRI/MRCP 10/02/25- Impression: MR findings compatible with a cirrhotic liver, there is also hepatomegaly with mild to moderate heterogeneous fatty infiltration of the liver. Hemangioma within the R hepatic lobe and 3 hepatic cysts (less than 5
mm). No evidence of HCC. Gallbladder is distended without acute cholecystitis. Dilation of the common bile duct and the common hepatic duct. No evidence for bile duct calculus or obstructing mass. Minimal free fluid in the right and left upper
quadrants adjacent liver and spleen.There is no MR evidence to suggest significant wall thickening of the visualized small or large bowel loops. No significant distention of visualized small or large bowel loops
- LFTs down-trending with T Bili 2.1 -> 1.5 -> 1.1
- Otherwise, no acute events overnight
Admits complete resolution of her previous RUQ abdominal pain and without any further discomfort. No other nausea/vomiting or other looser stools. Tolerating diet without difficulty and hoping to go home. Discussed findings of recent MRI/MRCP with
patient this AM, notes alcohol use and drinks approximately 2 bottles of wine per week.
Objective
Data Reviewed
Laboratory Data:
Laboratory Results
Phosphorus 2.1 mg/dl (2.5-4.5) L 10/02/25 08:02
Magnesium 1.7 mg/dl (1.6-2.3) 10/02/25 08:02
Total Bilirubin 1.5 mg/dl (0.2-1.3) H 10/02/25 08:02
AST 101 U/L (14-36) H 10/02/25 08:02
ALT 54 U/L (0-35) H 10/02/25 08:02
Alkaline Phosphatase 120 U/L (38-126) 10/02/25 08:02
Lipase 185 U/L (23-300) 10/01/25 13:26
Vital Signs and I&O:
Vital Signs
Temp Pulse Resp BP Pulse Ox
97.9 F 75 16 135/78 97
10/02/25 23:13 10/02/25 23:13 10/02/25 23:13 10/02/25 23:13 10/02/25 23:13
I&O
10/01/25 10/02/25 10/03/25
06:59 06:59 06:59
Intake Total 1225 / 1225 580 / 580
Balance 1225 / 1225 580 / 580
Physical Exam
Physical Exam
HEENT: Anicteric and Moist mucous membranes
Pulmonary: Other (Normal WOB on room air)
GI: Soft, Non Distended and Non Tender
Extremities: No Edema
Neuro: Non Focal and Other (AAOx3, no asterixis)
[2025-10-03 06:23] LABS: Hematocrit 36.9 % (37.0-47.0); Hemoglobin 12.6 g/dL (12.0-16.0); Mean Corp Hgb Conc. 34.1 g/dL (33.0-37.0); Mean Corpuscular Volume 96.9 fL (81.0-99.0); Platelet Count 106 10^3/uL (130-400); Red Cell Dist. Width 12.6 % (11.5-14.5)
[2025-10-03 06:32] LABS: ALT (SGPT) 54 U/L (0-35); AST (SGOT) 107 U/L (14-36); Albumin 3.4 g/dl (3.5-5.0); Alkaline Phosphatase 111 U/L (38-126); Blood Urea Nitrogen 4 mg/dl (7-17); Calcium 8.9 mg/dl (8.4-10.2); Carbon Dioxide 29 mmol/L (22-30); Chloride 103 mmol/L (98-107); Estimated Creatinine Clearance 74 ml/min; Glucose 108 mg/dl (70-99); Potassium 3.5 mmol/L (3.5-5.1); Sodium 135 mmol/L (135-145); Total Protein 6.4 g/dl (6.3-8.2); eGFR > 60.00
[2025-10-03 07:29] VITALS: BP 154/95
[2025-10-03 07:35] LABS: INR 1.36; PT 17.1 Sec (11.4-14.6)
[2025-10-03] MEDS: PROTONIX IV 40 MG IV (08:20)
[2025-10-03] MEDS: ZESTRIL 20 MG PO (08:20)
--- NOTE | 2025-10-03 08:48 | W.PN.HOSP.TC ---
Addendum entered and electronically signed by Hemanth Mullen MD 10/04/25 07:53:
Pancytopenia
Original Note:
Today's Communication/Plan
-
Discharge planning today
Assessment / Plan
Assessment / Plan
Physical exam:
General: No acute distress
HEENT: Normocephalic, Atraumatic and Moist Mucous Membranes
Respiratory: Clear to Auscultation; Negative Wheezes, Rales or Rhonchi
Cardiac: Regular Rhythm and S1/S2
GI: Soft, Nontender and Nondistended
Musculoskeletal: No Clubbing, No Cyanosis and No Edema
Neuro: Awake, Alert and Oriented, no neurological deficits
Psych: Calm
A/P:
Persistent nausea and vomiting associated with diarrhea:
Patient attributed to the use of Augmentin recently. Could be also gastroenteritis and or passed stone.
CT scan with evidence of duodenitis
Continue IV fluids
IV Protonix
Empiric IV antibiotics of ceftriaxone and Flagyl but holding Augmentin. Patient would like to continue to finish 2 more days of antibiotics so we will switch to oral cefuroxime. Discussed that side effects can happen to any medications including
his antibiotics-I was favoring not giving any antibiotics but upon her request it is not unreasonable to try to finish course for 2 more days.
Pain control
GI consult appreciated
Elevated LFTs and CBD:
Plan for MRCP
Patient has history of fatty liver disease MASLD
Liver cirrhosis:
Discussed with GI and she will follow-up as outpatient
Possible passed stone and gallbladder issues:
GI recommends CT surgery as outpatient-discussed with patient and referral placed upon discharge.
Hypertension:
Continue antihypertensives
Hyponatremia:
Mild
DVT prophylaxis:
SCDs
CODE STATUS:
Full code
Anticipated Discharge: Today
Subjective/Interval History
-
Date of Service: October 03, 2025
No new complaints. Feels overall better
Objective Data
-
Labs:
Laboratory Results
10/03/25
05:43
WBC 4.7 L
Hgb 12.6
Hct 36.9 L
Plt Count 106 L
PT 17.1 H
INR 1.36
Sodium 135
Potassium 3.5
Chloride 103
Carbon Dioxide 29
BUN 4 L
Creatinine 0.5 L
Glucose 108 H
Calcium 8.9
Total Bilirubin 1.1
AST 107 H
ALT 54 H
Alkaline Phosphatase 111
Vital Signs:
Vital Signs
Temp Pulse Resp BP Pulse Ox
98.5 F 75 18 154/95 95
10/03/25 07:29 10/03/25 08:20 10/03/25 07:29 10/03/25 08:20 10/03/25 08:00
I&O
10/02/25 10/03/25 10/04/25
06:59 06:59 06:59
Intake Total 1225 / 1225 580 / 580
Balance 1225 / 1225 580 / 580
[2025-10-03] MEDS: FLAGYL 500 MG 100 IV (09:55)
--- NOTE | 2025-10-03 11:00 | W.DCSUMMARY ---
Discharge Summary
Discharge Data
Date of Admission: 10/01/25
Date of Discharge: 10/03/25
Total time spent discharging patient (in min): 32
-
Pending Results: No
Hospital Course
Patient is 65 years old female with history of alcohol use disorder, hypertension, came into the hospital with persistent nausea and vomiting diarrhea and abdominal pain. GI consulted. Patient was taking Augmentin and she thought was probably
culprit of her symptoms. Augmentin was held during this hospital stay but she was kept on IV Rocephin and Flagyl. Patient was given IV fluid, supportive care, and she had a CT scan of the abdomen that was abnormal. Subsequently she had an MRCP.
Findings were consistent with cirrhosis and some biliary dilation probably passed stone. GI recommended outpatient follow-up with them and also referred to general surgery as outpatient. Otherwise, patient is hemodynamically stable and tolerating
diet well and ambulating well as well. She was instructed strict alcohol cessation. No other events were noticed. GI cleared for discharge. Patient will be discharged in relatively stable condition today.
Discharge duration: 32 minutes
Discharge Plan
-
Patient Disposition: Home (Routine Discharge)
Discharge Diagnosis/Procedures: Abdominal pain nausea vomiting. Liver cirrhosis. Alcohol use disorder. Transaminitis. Hyponatremia. Augmentin adverse effect. Hypertension.
Diet: Low Fat
Activity: As tolerated
Blood Work: Please PCP to order CBC, CMP, INR within 1 to 2 weeks.
Referrals:
Slick Saxena MD [Active, Surgical] - in two to four weeks
Referral Note: Evaluate for possible gallbladder disease
Joanna Bello PA-C [Family Provider] - in less than 1 week
Femi Herzog DO [Active, Gastroenterology]
Referral Note: Call to make an appointment in the GI office after your hospitalization in the next few months
Additional Discharge Medication Instructions: Alcohol cessation.
Prescriptions:
New
cefuroxime axetil 250 mg tablet
250 mg PO BID 2 Days Qty: 4 0RF
ondansetron 4 mg tablet,disintegrating
4 mg PO Q8H PRN (Reason: nausea and vomiting) Qty: 7 0RF
Continued
lisinopril-hydrochlorothiazide 20-25 mg Tablet
1 tab PO DAILY
fluticasone propionate 50 mcg/actuation [place],Suspension
1 spray INTRANASAL BID
Discharge Orders:
Discharge Patient (As Directed); Ordered 10/03/25
Ordered By: Hemanth Mullen
Discharge Date and Time
Discharge Date/Time: 10/03/25 13:50
Print Language: FINNISH
[2025-10-03] MEDS: D5/0.9% SODIUM CHLORIDE IV (11:05)
[2025-10-03 12:45] VITALS: BP 144/82
--- NOTE | 2025-10-03 13:24 | CM ---
CM following re: discharge planning.
Reviewed pt's chart, met with pt.
Discharge order noted. Pt is aware and she stated her friend is coming to transport home.
No after care VN needs identified.
D/C plan: home no needs. Friend to transport.
--- NOTE | 2025-10-03 14:15 | PN.CDI ---
CDI
- -
CDI:
Physician Documentation Request
Admit Date: 10/01/25 21:18
Dear Doctor Sebas,
Clinical Indicators:
Patient admitted with suspected gastroenteritis vs passed stone.
10/03 GI PN, 'Compensated Cirrhosis suspect 12/18#EtOH Cirrhosis...mild synthetic dysfunction with mildly elevated INR, thrombocytopenia'
WBC, RBC, Plt trend:
10/02/25 10/03/25
08:02 05:43
WBC 4.7 L
RBC 3.81 L
Hct 36.9 L
Plt Count 120 L D 106 L
Based on the above, could you clarify in the progress notes, the appropriate diagnosis, if significant, that supports the above abnormalities and additional evaluation, monitoring and/or treatment rendered:
Pancytopenia
Thrombocytopenia only
Other, please specify
Use of terms such as suspected, likely, concern for, or probable (associated with a specific diagnosis that is being evaluated, monitored, or treated as if it exists) are acceptable and can be coded in the inpatient setting, when documented at the
time of discharge.
Thank you,
SABAS Steinberg RN
CDI Specialist
available via tiger text
Please use your independent medical judgment in providing your response.
== END 2025-10-03 13:50 | disposition home or self-care (01) | DRG 392 ==
LOC: 2 NORTH 21:18
PROVIDERS: Emergency Medicine; Nurse Practitioner; Registered Nurse; ADMITTING PHYSICIAN Hospitalist; ATTENDING PHYSICIAN Hospitalist; CONSULT PHYSICIAN Student in an Organized Health Care Education/Training Program; EMERGENCY PHYSICIAN Emergency Medicine; FAMILY PHYSICIAN Physician Assistant
DX: K29.80 Duodenitis without bleeding (principal); E87.1 Hypo-osmolality and hyponatremia; D61.818 Other pancytopenia; E87.20 Acidosis, unspecified; Z87.891 Personal history of nicotine dependence; I10 Essential (primary) hypertension; K70.30 Alcoholic cirrhosis of liver without ascites
CPT/HCPCS: 74176; 74183; 76700; 80053; 81003; 82248; 83605; 83690; 83735; 84100; 85025; 85027; 85610; 86308; 86704; 86706; 86708; 86803; 87340; 87502; 87811; 96365; 96375; 99285; A9575